=== PATIENT | male | born 1950 | race Caucasian/White ===

== ENCOUNTER 2018-04-18 16:12 | Inpatient (IN) | payer OTHER ==
[2018-04-12 23:50] VITALS: BP 117/75
[~2018-04-18] VITALS: Ht 157.5 cm; Wt 69.9 kg
[~2018-04-18 16:12] MED LIST: ARICEPT5 MG PO; ASPIR 8181 MG PO; ATORVASTATIN CA20 MG PO; CLOPIDOGREL75 MG PO; DAILY VITAMIN1 EAC3 PO; FLAXSEED-FISH-400 MG PO; FLOMAX0.4 MG PO; METFORMIN HCL500 MG PO; NITROSTAT0.4 MG PO; PANTOPRAZOLE SO40 MG PO; PROZAC20 MG PO; TEMAZEPAM15 MG PO; TOPROL XL25 MG PO; VASOTEC5 MG PO; VITAMIN B-12500 MCG PO; VITAMIN C500 M4 PO
[2018-04-18] MEDS ORDERED: QUETIAPINE FUM100 MG PO (16:39)
[2018-04-18] MEDS ORDERED: GABAPENTIN300 MG PO (16:39)
[2018-04-18] MEDS ORDERED: TRAZODONE HCL50 MG PO (16:39)
[2018-04-18] MEDS ORDERED: LISINOPRIL2.5 MG PO (16:39)
[2018-04-18 16:57] LABS: BASOPHILS % 0.5 % (0.0-1.0); EOSINOPHILS # (AUTO) 0.1 (0.0-0.4); EOSINOPHILS % 0.6 % (0.0-6.0); HEMATOCRIT 40.5 % (38.2-49.6); HEMOGLOBIN 13.7 g/dL (14.0-18.0); LYMPHOCYTES # (AUTO) 1.7 (1.0-3.2); LYMPHOCYTES % 21.8 % (18.0-39.1); MEAN CORPUSCULAR HEMOGLOBIN 32.9 pg (28-32); MEAN CORPUSCULAR HGB CONC 33.8 g/dL (31-35); MEAN CORPUSCULAR VOLUME 97.1 fL (81-99); MONOCYTES # (AUTO) 0.4 (0.2-0.8); MONOCYTES % 5.5 % (4.4-11.3); NEUTROPHILS # (AUTO) 5.5 (2.1-6.9); NEUTROPHILS % 71.3 % (38.7-80.0); PLATELET COUNT 242 x10e3/uL (140-360); RED BLOOD COUNT 4.17 x10e6/uL (4.3-5.7); RED CELL DISTRIBUTION WIDTH 12.3 % (11.7-14.4)
[2018-04-18 17:07] LABS: INR 0.95; PROTHROMBIN TIME 13.6 seconds (11.9-14.5)
[2018-04-18 17:08] LABS: PARTIAL THROMBOPLASTIN TIME 23.8 seconds (23.8-35.5)
[2018-04-18 17:17] LABS: ALBUMIN 4.8 g/dL (3.5-5.0); ALBUMIN/GLOBULIN RATIO 1.8 (0.8-2.0); ANION GAP 17.7 mmol/L (8-16); CALCIUM 9.9 mg/dL (8.4-10.2); CREATININE, SERUM 1.35 mg/dL (0.72-1.25); POTASSIUM 3.7 mmol/L (3.5-5.1)
[2018-04-18 17:24] LABS: CREATINE KINASE MB 0.5 ng/mL (0-5.0)
--- NOTE | 2018-04-18 17:31 | Diagnostic Imaging Report ---
EXAMINATION: CHEST SINGLE (PORTABLE) INDICATION: 1 sharp. Chest pain. Back pain. Weakness. Mid anterior chest and lower back. COMPARISON: None FINDINGS: AP view TUBES and LINES: Median sternotomy wires are present. LUNGS: Lungs are well inflated. Lungs are clear. There is no evidence of pneumonia or pulmonary edema. PLEURA: No pleural effusion or pneumothorax. HEART AND MEDIASTINUM: The cardiomediastinal silhouette is unremarkable. BONES AND SOFT TISSUES: No acute osseous lesion. Soft tissues are unremarkable. UPPER ABDOMEN: No free air under the diaphragm. IMPRESSION: No acute thoracic abnormality. Signed by: Dr. Andre Corbett M.D. on 04/18/2018 5:28 PM
--- NOTE | 2018-04-18 17:32 | Diagnostic Imaging Report ---
Lumbar Spine Radiographs: 5 views including bilateral obliques HISTORY: Back pain. Chest pain.. COMPARISON: None available. DISCUSSION: Some of the osseous structures are partially obscured by stool and bowel gas. There are five non-rib bearing lumbar vertebral bodies. The alignment of the spine is within normal limits. No displaced fracture or compression deformity is identified. Disc Spaces: The disc spaces are well maintained. Facets: Moderate to severe facet thrombosis in the lower lumbar spine. Moderate bilateral facet joint sclerosis. IMPRESSION: Moderate degenerative changes in the lower lumbar spine related to facet arthropathy. Signed by: Dr. Andre Corbett M.D. on 04/18/2018 5:29 PM
[2018-04-18 18:05] LABS: CLARITY,URINE SL CLOUDY (CLEAR); COLOR,URINE YELLOW (YELLOW); KETONES,URINE 1+ (NEGATIVE); LEUKOCYTE ESTERASE ,URINE NEGATIVE (NEGATIVE); NITRITE,URINE NEGATIVE (NEGATIVE); PROTEIN,URINE DIPSTICK TRACE (NEGATIVE)
[2018-04-18 18:06] LABS: BILIRUBIN,URINE NEGATIVE (NEGATIVE); URINE UROBILINOGEN 1 mg/dL (0.2 - 1)
[2018-04-18 18:17] LABS: BACTERIA,URINE FEW /HPF; RBC,URINE 0-5 /HPF (0-5); WBC,URINE (MAN) 0-5 /HPF (0-5)
[2018-04-18 18:18] LABS: AMORPHOUS SEDIMENT,URINE MODERATE (FEW); CALCIUM OXALATE CRYSTALS,UR FEW (FEW); EPITHELIAL CELLS,URINE MODERATE /LPF
--- NOTE | 2018-04-18 18:24 | NUR ---
PATIENT AWAKE AND ALERT SITTING IN BED. RESP EVEN AND UNLABORED. SKIN WARM AND DRY. NO SIGNS OF ACUTE DISTRESS NOTED AT THIS TIME. DENIES ANY C/O AT THIS TIME.
[2018-04-18] MEDS ORDERED: ASPIRIN 81 MG CHEW TAB PO ONE (18:45)
--- NOTE | 2018-04-18 18:52 | NUR ---
PT PRESSED CALL [facility], ASKING HOW LONG HE IS GOING TO HAVE TO STAY IN HOSPITAL, ADVISED DEPENDS ON FURTHER EVAL. REASSURANCE GIVEN
--- NOTE | 2018-04-18 18:52 | NUR ---
VERBAL REPORT GIVEN TO NOEMÍ ROBIN.
--- NOTE | 2018-04-18 19:05 | NUR ---
PT PRESSED CALL [facility], STATES HE IS UNCOMFORTABLE IN BED, ADJUSTED HOB, LYING ON L SIDE
--- OUTSIDE RECORDS SUMMARY | 2018-04-18 19:15 | XMS REPORT ---
Author [facility] Address Unknown Phone Unavailable Care Team Providers Care Migratory Game Bird Biologist Name Role Phone Jordan PECK Unavailable Unavailable Problems This patient has no known problems. Allergies, Adverse Reactions, Alerts This patient has no known allergies or adverse reactions. Medications This patient has no known medications. Results Test Description Test Time Test Comments Text Results Atomic Results Result Comments SP LUMBAR, COMPLETE MIN 4VW 2018-04-18 17:28:00 [facility] [address] [place], [place] [address] Patient Name: MIRANDA ROBERTS MR #: [id number] : 1950 Age/Sex: 67/M Req #: [id number] Adm Physician: Ordered by: AVERY VELASQUEZ INTEGRATED SPECIALIST Report #: [id number] Location: ER Room/Bed: Procedure: [id number] DX/SP LUMBAR, COMPLETE MIN 4VW Exam Date: 04/18/18 Exam Time: 1645 REPORT STATUS: Signed Lumbar Spine Radiographs: 5 views including bilateral obliques HISTORY: Back pain. Chest pain.. COMPARISON: None available. DISCUSSION: Some of the osseous structures are partially obscured by stool and bowel gas. There are five non-rib bearing lumbar vertebral bodies. The alignment of the spine is within normal limits. No displaced fracture or compression deformity is identified. Disc Spaces: The disc spaces are well maintained. Facets: Moderate to severe facet thrombosis in the lower lumbar spine. Moderate bilateral facet joint sclerosis. IMPRESSION: Moderate degenerative changes in the lower lumbar spine related to facet arthropathy. Signed by: Dr. Casandra Corbett M.D. on 04/18/2018 5:29 PM Dictated By: CASANDRA CORBETT MD 28 Transcribed By: ALYSSIA on 04/18/181728 COPY TO: AVERY VELASQUEZ NP CHEST SINGLE (PORTABLE) 2018-04-18 17:26:00 [place] [address] Patient Name: MIRANDA ROBERTS MR #: [id number] : 1950 Age/Sex: 67/M Req #: [id number] Adm Physician: Ordered by: AVERY VELASQUEZ INTEGRATED SPECIALIST Report #: [id number] Location: ER Room/Bed: Procedure: [id number] DX/CHEST SINGLE (PORTABLE) Exam Date: 04/18/18 Exam Time: 1645 REPORT STATUS: Signed EXAMINATION: CHEST SINGLE (PORTABLE) INDICATION: 1 sharp. Chest pain. Back pain. Weakness. Mid anterior chest and lower back. COMPARISON: None FINDINGS: AP view TUBES and LINES: Median sternotomy wires are present. LUNGS: Lungs are well inflated. Lungs are clear. There is no evidence of pneumonia or pulmonary edema. PLEURA: No pleural effusion or pneumothorax. HEART AND MEDIASTINUM: The cardiomediastinal silhouette is unremarkable. BONES AND SOFT TISSUES: No acute osseous lesion. Soft tissues are unremarkable. UPPER ABDOMEN: No free air under the diaphragm. IMPRESSION: No acute thoracic abnormality. Signed by: Dr. Casandra Corbett M.D. on 04/18/2018 5:28 PM Dictated By: CASANDRA CORBETT MD 27 Transcribed By: ALYSSIA on 04/18/181727 COPY TO: AVERY VELASQUEZ NP
--- NOTE | 2018-04-18 20:10 | NUR ---
Pt received from ER. Pt A&O and resting in bed. Pt on room air and no tele. Pt has no complaints of pain. All safety measures ensured, bed alarm on, and pt call avitia near. Pt encouraged to use call avitia for assistance.
[2018-04-18 20:30] VITALS: BP 117/75
--- NOTE | 2018-04-18 20:37 | NUR ---
Call put into Dr. Fair to restart pt home meds
[2018-04-18] MEDS: DONEPEZIL HCL 5 MG TAB PO SCH (21:21)
[2018-04-18] MEDS: TRAZODONE HCL 50 MG TAB PO SCH (21:21)
[2018-04-18] MEDS: ATORVASTATIN 20 MG TAB PO SCH (21:21)
[2018-04-18 23:50] VITALS: BP 117/75
[2018-04-19] VITALS: BP 109/69
[2018-04-19 01:44] LABS: CREATINE KINASE MB 0.4 ng/mL (0-5.0)
[2018-04-19 04:00] VITALS: BP 136/75
--- NOTE | 2018-04-19 06:50 | NUR ---
Handoff report and walking rounds rec'd with outgoing awake overnight monitor nurse. Pt rec'd AOx3, able to verbalize needs. Pt denies chest pain. Pt denies SOB. Pt denies any other discomfort. VSS with even and unlabored respirations on room air. Safety measures intact. Call light in reach with instructions to call for assistance.
--- NOTE | 2018-04-19 06:50 | NUR ---
report given to oncoming nurse
[2018-04-19 08:15] VITALS: BP 120/65
[2018-04-19] MEDS: METFORMIN HCL 500 MG TAB PO SCH ×2 (08:37→16:41)
[2018-04-19] MEDS: GABAPENTIN 300 MG CAP PO SCH ×2 (08:37→16:41)
[2018-04-19] MEDS: CLOPIDOGREL BISULFATE 75 MG TAB PO SCH (08:37)
[2018-04-19] MEDS: LISINOPRIL 2.5 MG TAB PO SCH (08:38)
[2018-04-19] MEDS: FLUOXETINE HCL 20 MG CAP PO SCH (08:38)
[2018-04-19] MEDS: TAMSULOSIN HCL 0.4 MG CAP PO SCH (08:53)
[2018-04-19] MEDS ORDERED: QUETIAPINE FUMARATE 100 MG TAB PO SCH (09:00)
[2018-04-19 09:09] VITALS: BP 120/65
[2018-04-19 09:46] LABS: CREATINE KINASE MB 0.6 ng/mL (0-5.0)
[2018-04-19] MEDS ORDERED: DEXTROSE 50% SYRINGE 50 ML IV PRN (11:15)
[2018-04-19 12:00] VITALS: BP 131/80
[2018-04-19] MEDS: INSULIN LISPRO 100 UNIT/1 ML 3ML VIAL SQ SCH ×3 (12:30→20:21)
--- NOTE | 2018-04-19 19:02 | NUR ---
Report received and walking rounds complete. Pt resting in bed and in no apparent distress. Pt on RA and no tele. Uses walker to ambulate. All safety measures ensured, bed alarm on, and pt call avitia near. Pt encouraged to use call avitia for assistance.
--- NOTE | 2018-04-19 19:46 | NUR ---
Pt showered, gown and linens changed. Bedside commode also given to pt.
[2018-04-19 20:20] VITALS: BP 111/68
[2018-04-19] MEDS: DONEPEZIL HCL 5 MG TAB PO SCH (20:20)
[2018-04-19] MEDS: TRAZODONE HCL 50 MG TAB PO SCH (20:20)
[2018-04-19] MEDS: QUETIAPINE FUMARATE 100 MG TAB PO SCH (20:21)
[2018-04-19] MEDS: ATORVASTATIN 20 MG TAB PO SCH (20:21)
--- NOTE | 2018-04-19 20:23 | NUR ---
Pt refused insulin. Pt states he "doesn't need or take it." BS 192.
[2018-04-20] VITALS (7 sets, daily range): BP systolic 105–132; BP diastolic 65–75
--- NOTE | 2018-04-20 06:55 | NUR ---
Report given to oncoming nurse and walking rounds complete
[2018-04-20] MEDS: INSULIN LISPRO 100 UNIT/1 ML 3ML VIAL SQ SCH ×4 (07:23→20:16)
[2018-04-20] MEDS: FLUOXETINE HCL 20 MG CAP PO SCH (08:13)
[2018-04-20] MEDS: LISINOPRIL 2.5 MG TAB PO SCH (08:13)
[2018-04-20] MEDS: TAMSULOSIN HCL 0.4 MG CAP PO SCH (08:13)
[2018-04-20] MEDS: METFORMIN HCL 500 MG TAB PO SCH ×2 (08:13→18:36)
[2018-04-20] MEDS: CLOPIDOGREL BISULFATE 75 MG TAB PO SCH (08:13)
[2018-04-20] MEDS: GABAPENTIN 300 MG CAP PO SCH ×2 (08:13→18:36)
--- NOTE | 2018-04-20 12:37 | NUR ---
SPOKE WITH PATIENT WHOM CHOOSE [facility] TO STAY CLOSE TO HIS APARTMENT. SIGNED CHOICE AND FILED IN CHART, WILL FAX CLINICALS FOR REVIEW.
--- NOTE | 2018-04-20 13:22 | NUR ---
SOCIAL WORK INITIAL ASSESSMENT Antique Repairer to bedside to discuss plan of care with patient/family. CM/SW role and care transitions discussed. Anticipated discharge plan discussed along with duration of care. CM/SW discussed patients right to make decisions in care. CM/SW work hours given. Patient lives: IN APARTMENT WITH PROVIDER LAZARUS MURILLO Admit/Transfer: VIA ED FROM HOME POA/Emergency contact: LAZARUS MURILLO Current/Previous Home Health: NONE PCP/Follow-up Care: C[facility]ST[facility] Current/Previous DME: STATES CANT USE ANYTHING DUE TO SMALL SPACES IN APARTMENT SO USES THE WALL TO GET AROUND. Other Services: PROVIDER Employment Status: DISABLED Areas of Concerns: LONG-TERM PLACEMENT, PT STATES HE THINKS THE PROVIDER MOVED OUT AND LEFT HIS ALONE. Referral Needs: SNF Education Needs: IMM/CHANEY given and signed (if applicable): Goal for discharge: FAXED CLINICALS TO [facility] CM/SW left business card at the bedside with contact information. Name and number was also written on the patients whiteboard. Patient verbalized understanding of discussion. CM will follow-up with ongoing discharge and transition of care needs.
--- NOTE | 2018-04-20 13:40 | NUR ---
SPOKE WITH LAZARUS MURILLO WHOM STATES THIS IS HER EX , AND HE HAS BEEN IN SEVERAL HOSPITALS INCLUDING [facility]. SHE STATES HE WAS DISCHARGED FROM A HOSPITAL WITH [facility] BUT THEY STOPPED COMING MONTHS AGO, SHE STATES HE IS STAYING WITH HER BUT SHE IS ABOUT TO MOVE FROM HER APARTMENT AND HE CANNOT GO WITH HER. SHE STATES HE HAS A LONG HISTORY OF DEPRESSION. SHE STATES HE HAS A SECOND HAND ROLLATOR AND A REGULAR WALKER. SHE STATES WHEN HOSPICE LEFT THEY TOOK ALL THE EQUIPMENT. SHE STATES HE HAS A BROTHER IN [place] BUT HE HAS CHANGED HIS NUMBER AND DOESN'T WANT TO SPEAK WITH HIM. SHE STATES THE BROTHER PAID FOR A CREMATION FOR HIM BUT DOESN'T WANT TO DO ANYTHING ELSE. STATES HE IS ONE OF 6 CHILDREN BUT NONE OF THEM ARE SPEAKING TO HIM OR UNABLE TO ASSIST IN ANYWAY.
--- NOTE | 2018-04-20 18:36 | NUR ---
pt requested removal of iv. states 'its hurting and yall aint even using it', educated pt on need for iv access while hospitalized, pt repeated he wanted removed, educated on risks for no iv access in case of emergency and current admit with cp, pt repeated request for iv removal and no replacement. iv removed
--- NOTE | 2018-04-20 20:00 | NUR ---
pt received. no ss of distress noted. no co pain at time. no iv access noted. pt refused any access at time. will cont to follow poc. call avitia within reach.
[2018-04-20] MEDS: TRAZODONE HCL 50 MG TAB PO SCH (20:15)
[2018-04-20] MEDS: DONEPEZIL HCL 5 MG TAB PO SCH (20:15)
[2018-04-20] MEDS: ATORVASTATIN 20 MG TAB PO SCH (20:16)
[2018-04-20] MEDS: QUETIAPINE FUMARATE 100 MG TAB PO SCH (20:16)
[2018-04-21] VITALS: BP 93/55
[2018-04-21 04:00] VITALS: BP 138/76
--- NOTE | 2018-04-21 04:18 | NUR ---
pt resting. no ss of distress noted. call avitia within reach.
[2018-04-21] MEDS: INSULIN LISPRO 100 UNIT/1 ML 3ML VIAL SQ SCH ×4 (07:30→20:34)
--- NOTE | 2018-04-21 07:48 | NUR ---
pt resting in bed, no c/o pain or s/s distress. pt continues to refuse insulin coverage. will continue to monitor.
[2018-04-21 08:11] VITALS: BP 110/63
[2018-04-21] MEDS: CLOPIDOGREL BISULFATE 75 MG TAB PO SCH (08:48)
[2018-04-21] MEDS: METFORMIN HCL 500 MG TAB PO SCH ×2 (08:48→18:14)
[2018-04-21] MEDS: TAMSULOSIN HCL 0.4 MG CAP PO SCH (08:48)
[2018-04-21] MEDS: GABAPENTIN 300 MG CAP PO SCH ×2 (08:48→18:14)
[2018-04-21] MEDS: LISINOPRIL 2.5 MG TAB PO SCH (08:49)
[2018-04-21] MEDS: FLUOXETINE HCL 20 MG CAP PO SCH (08:49)
--- NOTE | 2018-04-21 10:15 | NUR ---
PT WAS DENIED SNF DUE TO WALKING 100 FT WITH C[facility], DOES NOT MEET CRITERIA FOR SNF. SENDING CLINICALS TO [facility] [phone] FOR APPROVAL FOR MEDICAID PENDING BED.
[2018-04-21 12:47] VITALS: BP 106/63
--- NOTE | 2018-04-21 15:22 | NUR ---
CM SPOKE TO DR. Weston GARCIA REGARDING PATIENT LOC. STATES PATIENT DOES NOT HAVE ANY ACUTE ILLNESSES THAT WILL REQUIRE INPATIENT STAY; HOWEVER, THE PATIENT WILL BE HERE FOR A FEW MORE DAYS PENDING PLACEMENT AT A SNF FACILITY. PATIENT IS WITH ENHANCING DEMENTIA AND UNABLE TO CARE FOR SELF. STATE SIF PATIENT DOES QUALIFY FOR INPATIENT CM CAN FLIP PATIENT.
[2018-04-21 17:06] VITALS: BP 105/73
[2018-04-21 20:00] VITALS: BP 122/87
[2018-04-21] MEDS: QUETIAPINE FUMARATE 100 MG TAB PO SCH (20:33)
[2018-04-21] MEDS: TRAZODONE HCL 50 MG TAB PO SCH (20:33)
[2018-04-21] MEDS: DONEPEZIL HCL 5 MG TAB PO SCH (20:33)
[2018-04-21] MEDS ORDERED: ATORVASTATIN 40 MG TAB PO SCH (21:00)
--- NOTE | 2018-04-21 21:00 | NUR ---
offered pt linen changed and shower. pt refused. call avitia within reach.
[2018-04-22] VITALS (7 sets, daily range): BP systolic 86–122; BP diastolic 57–87
--- NOTE | 2018-04-22 04:35 | NUR ---
pt resting. no ss of distress noted. call avitia within reach.
--- NOTE | 2018-04-22 06:15 | NUR ---
no urine output on pm shift. pt stated no urge at time. dr clark paged at time in regards to output. awaiting return phone call. will notify oncoming nurse. Addendum: 04/22/18 at 0643 by Mami Castillo RN attempted to bladder scan pt. pt refused at time.
--- NOTE | 2018-04-22 06:42 | NUR ---
spoke to dr clark in regards to urine output. new orders received. will notify oncoming nurse.
[2018-04-22] MEDS: INSULIN LISPRO 100 UNIT/1 ML 3ML VIAL SQ SCH ×3 (07:25→15:56)
[2018-04-22 08:13] LABS: BASOPHILS % 0.5 % (0.0-1.0); EOSINOPHILS # (AUTO) 0.1 (0.0-0.4); EOSINOPHILS % 1.2 % (0.0-6.0); HEMATOCRIT 43.2 % (38.2-49.6); HEMOGLOBIN 14.8 g/dL (14.0-18.0); LYMPHOCYTES # (AUTO) 2.3 (1.0-3.2); LYMPHOCYTES % 27.4 % (18.0-39.1); MEAN CORPUSCULAR HEMOGLOBIN 32.6 pg (28-32); MEAN CORPUSCULAR HGB CONC 34.3 g/dL (31-35); MEAN CORPUSCULAR VOLUME 95.2 fL (81-99); MONOCYTES # (AUTO) 0.6 (0.2-0.8); MONOCYTES % 6.4 % (4.4-11.3); NEUTROPHILS # (AUTO) 5.5 (2.1-6.9); NEUTROPHILS % 64.1 % (38.7-80.0); PLATELET COUNT 253 x10e3/uL (140-360); RED BLOOD COUNT 4.54 x10e6/uL (4.3-5.7); RED CELL DISTRIBUTION WIDTH 12.4 % (11.7-14.4)
[2018-04-22 08:30] LABS: ANION GAP 20.2 mmol/L (8-16); CALCIUM 9.7 mg/dL (8.4-10.2); CREATININE, SERUM 1.22 mg/dL (0.72-1.25); POTASSIUM 4.2 mmol/L (3.5-5.1)
[2018-04-22] MEDS: CLOPIDOGREL BISULFATE 75 MG TAB PO SCH (08:51)
[2018-04-22] MEDS: FLUOXETINE HCL 20 MG CAP PO SCH (08:51)
[2018-04-22] MEDS: TAMSULOSIN HCL 0.4 MG CAP PO SCH (08:51)
[2018-04-22] MEDS: METFORMIN HCL 500 MG TAB PO SCH ×2 (08:51→17:42)
[2018-04-22] MEDS: GABAPENTIN 300 MG CAP PO SCH ×2 (08:51→17:42)
[2018-04-22] MEDS: LISINOPRIL 2.5 MG TAB PO SCH (08:52)
[2018-04-22] MEDS ORDERED: QUETIAPINE FUMARATE 25 MG TAB PO PRN (09:00)
--- NOTE | 2018-04-22 09:30 | NUR ---
BLADDER SCAN DONE AT BEDSIDE WITH DR GARCIA, MINIMAL URINE NOTED, NO NEW ORDERS, PATIENT VOIDED 250 CC IN URINAL AND MD AWARE
[2018-04-22] MEDS ORDERED: DIATRIZOATE MEGL/DIATRIZOA SOD 30 ML BTL PO ONE (13:12)
--- NOTE | 2018-04-22 13:56 | NUR ---
was accepted in a [facility] pending bed at [facility], [address], [place] [address], . gave rtf, pasrr and discharge summary to nurse asked her to call md and get discharge order call report and transfer pt.
--- NOTE | 2018-04-22 13:58 | NUR ---
GOING TO RM [address] COMBS
--- NOTE | 2018-04-22 15:42 | Diagnostic Imaging Report ---
EXAMINATION: CT of the abdomen and pelvis without contrast. TECHNIQUE: Spiral CT images of the abdomen and pelvis were performed from the lung bases to the lesser trochanters. Coronal and sagittal reformatted images were obtained. Patient refused IV and most oral contrast. COMPARISON: None. CLINICAL HISTORY:Upper abdominal pain for several months. Patient states history of IBS DISCUSSION: ABSENCE OF INTRAVENOUS CONTRAST DECREASES SENSITIVITY FOR DETECTION OF FOCAL LESIONS AND VASCULAR PATHOLOGY. ABDOMEN/PELVIS: LOWER THORAX: Lung bases are grossly clear. HEPATOBILIARY: Borderline low attenuation of the hepatic parenchyma, likely reflecting mild steatosis. No focal lesions. No intra or extrahepatic biliary ductal dilation. GALLBLADDER: No radio-opaque stones or sludge. No wall thickening. SPLEEN: No splenomegaly. PANCREAS: No focal masses or ductal dilatation. ADRENALS: No adrenal nodules. KIDNEYS/URETERS: 2 and 3 mm nonobstructing calculi in the right superior to mid aspect (series 2, image 32). 2 mm nonobstructing calculus in the right mid to inferior aspect (coronal image 61). Punctate nonobstructing calculus in the right inferior pole (coronal image 61). Punctate nonobstructing calculus in the left superior to mid aspect (series 2, image 35). Punctate nonobstructing calculi in the left inferior pole (coronal image 58). No ureteral calculi, hydronephrosis or obstruction. No contour abnormalities. Mild bilateral nonspecific perinephric stranding. PELVIC ORGANS/BLADDER: Moderate circumferential bladder wall thickening, which is greater than expected for underdistention. Prostate is enlarged, measuring 4.9 cm in transverse diameter. PERITONEUM/RETROPERITONEUM: No free air or fluid. LYMPH NODES: No intra-abdominal,retroperitoneal, pelvic or inguinal lymphadenopathy. VESSELS: Essentially unremarkable for noncontrast exam. Persistent left IVC GI TRACT: No bowel dilation or evidence of obstruction. Minimal amount of contrast is noted in the distal ileum. Appendix is well identified and normal in caliber. BONES AND SOFT TISSUES: No aggressive lytic lesions. Degenerative disc changes in the lower thoracic and lumbosacral spine. Soft tissues are grossly unremarkable. IMPRESSION: 1. Exam limited by lack of intravenous contrast. 2. No bowel dilation or evidence of obstruction. 3. Multiple bilateral nonobstructing calculi, as described. No ureteral calculi, hydronephrosis or obstruction. 4. Moderate circumferential bladder wall thickening, which is greater than expected for underdistention. This may reflect bladder outlet obstruction from an enlarged prostate. Correlate for cystitis. 5. Mild hepatic steatosis. Signed by: Dr. Aldo Ortiz M.D. on 04/22/2018 3:39 PM
[2018-04-22] MEDS ORDERED: TAMSULOSIN HCL 0.4 MG CAP PO SCH (17:00)
[2018-04-22] MEDS ORDERED: MIRTAZAPINE 15 MG TAB PO SCH (21:00)
[2018-04-22] MEDS ORDERED: QUETIAPINE FUMARATE 100 MG TAB PO SCH (21:00)
--- NOTE | 2018-04-24 03:06 | Discharge Summary ---
FINAL DIAGNOSIS: Placement. SUMMARY: Patient is a 67-year-old male with dementia. The patient apparently was living with his ex- and she basically brought the patient to the hospital stating that she can no longer take care of the patient and that the patient needed to be placed in the residential. The patient was admitted on April 18, 2018, and since then, the patient has been awaiting for a bed at [facility], pending availability. The patient was subsequently accepted, continuing care, and the patient discharged therefore to [facility]. Job#: [id number] MAJOR
== END 2018-04-22 18:18 | DRG 313 ==
LOC: ER 16:12 → ERHOLD 19:13 → IMCU 20:05 → OBSVTOIN 04-22 08:53
PROVIDERS: ADMIT Internal Medicine; ATTEND Internal Medicine
DX: R07.89 Other chest pain (principal); G30.9 Alzheimer's disease, unspecified; F02.80 Dementia in other diseases classified elsewhere, unspecified severity, without behavioral disturbance, psychotic disturbance, mood disturbance, and anxiety; I25.10 Atherosclerotic heart disease of native coronary artery without angina pectoris; Z95.1 Presence of aortocoronary bypass graft; E11.9 Type 2 diabetes mellitus without complications; I10 Essential (primary) hypertension; F32.9 Major depressive disorder, single episode, unspecified; R62.7 Adult failure to thrive; Z68.28 Body mass index [BMI] 28.0-28.9, adult; R33.9 Retention of urine, unspecified; Z88.5 Allergy status to narcotic agent; Z91.018 Allergy to other foods; N40.0 Benign prostatic hyperplasia without lower urinary tract symptoms; M54.9 Dorsalgia, unspecified; Z79.84 Long term (current) use of oral hypoglycemic drugs; Z87.891 Personal history of nicotine dependence
CPT/HCPCS: 36415; 71045; 72110; 74176; 80048; 80053; 81001; 82550; 82553; 82948; 84484; 85025; 85610; 85730; 93005; 99284; G0378